=== PATIENT | male | born 1950 | race Caucasian/White ===

== ENCOUNTER 2023-12-24 12:44 | Day surgery (SDC) | payer MEDICARE ==
[2023-12-24] MEDS ORDERED: Sodium Chloride 0.9(Preservative Free) 10 ML IJ ONE (12:45)
[2023-12-24] MEDS ORDERED: Depo-Medrol 40 MG/ML IM ONE (12:45)
[2023-12-24] MEDS ORDERED: XYLOCAINE-MPF 1% 5ML SDV IJ ONE (12:45)
[2023-12-24] MEDS ORDERED: DIPRIVAN 200 MG/20 ML IV ONE (15:56)
[2023-12-24] MEDS ORDERED: Lactated Ringers 1,000 ML IV ONE (17:05)
--- NOTE | 2023-12-24 20:20 | XRAY ---
Indication: Lumbar DARIEL Intraoperative fluoroscopy provided for 16 seconds. 3 digital spot image submitted for interpretation demonstrates posterior needle tip projecting posterior to lumbosacral junction. Small amount of contrast injected for needle tip placement. Correlate with intraoperative findings/report.
--- NOTE | 2023-12-25 09:36 | XRAY ---
16 seconds of fluoroscopy was used in surgery for a lumbar DARIEL.
== END 2023-12-24 16:37 | disposition home or self-care (01) ==
LOC: SDC-PAIN 12:44
PROVIDERS: ATTEND Psychiatry & Neurology Pain Medicine
DX: M54.16 Radiculopathy, lumbar region (principal)
CPT/HCPCS: 62323; 72100; 77003; J1030; J2704; Q9966